=== PATIENT | female | born 1935 | race Caucasian/White ===

== ENCOUNTER → 2017-03-31 | Outpatient (CLI) | payer BC ==
[~2017-03-31] MED LIST: ASPI81TA28 PO; CHOL100027 PO; CYCL10TA6 PO; METF500T PO; METO25TA3 PO; NAPR220T40 PO; SIMV40TA4 PO
[2017-03-31 09:46] LABS: ESTIMATED AVERAGE GLUCOSE 140 mg/dl; HA1C FLAG Normal (Normal)
[2017-03-31 09:58] LABS: ALT/SGPT 30 U/L (12-78); BLOOD UREA NITROGEN 18 mg/dl (7-18); CALCIUM 9.2 mg/dl (8.5-10.1); CARBON DIOXIDE 27 mmol/L (21-32); CHLORIDE 106 mmol/L (98-107); CHOLESTEROL 202 mg/dl (0-200); GLUCOSE 99 mg/dl (70-99); POTASSIUM 4.1 mmol/L (3.5-5.1); SODIUM 139 mmol/L (136-145)
[2017-03-31 10:08] LABS: ALKALINE PHOSPHATASE 100 U/L (45-117); AST/SGOT 21 U/L (15-37); CHOLESTEROL/HDL RATIO 3.1; HDL CHOLESTEROL 66 mg/dl; LDL CHOLESTEROL CALCULATED 106 mg/dl; TRIGLYCERIDES 150 mg/dl (0-150); VERY LOW DENSITY LIPOPROT CALC 30 mg/dl
--- NOTE | 2017-04-05 13:12 | CODING QUERY MEDICAL NECESSITY ---
SUPPORTING DIAGNOSIS NEEDED Dr. Cee, A supporting diagnosis is required for the test/procedure performed on this patient in order for us to be reimbursed by the patient's insurance. Please provide a supporting diagnosis for the following test/procedure listed below next to the test name along with your signature. *If there is no additional diagnosis for this patient that would support the following test/procedure please document that below next to the test/procedure. Test(s)/Procedure(s) that require a supporting diagnosis: * ([id number]) VITAMIN D ASSAY DIAGNOSIS: * [id number] GLYCATED HEMOGLOBIN DIAGNOSIS: DATE OF SERVICE: 03/31/17 Provider Signature: Date: Thank you Alex Coronel Health Information Management Once completed, please kindly fax back to [phone] For questions please call [phone]
== END | disposition home or self-care (01) ==
LOC: C.LAB1850 08:46
PROVIDERS: ATTEND Internal Medicine
DX: E78.5 Hyperlipidemia, unspecified (principal)

== ENCOUNTER → 2017-04-19 | Outpatient (CLI) | payer BC | END | disposition home or self-care (01) | LOC: C.LABSPEC 13:35 | PROVIDERS: ATTEND Physician Assistant | DX: N94.89 Other specified conditions associated with female genital organs and menstrual cycle (principal) ==

== ENCOUNTER → 2017-04-26 | Outpatient (CLI) | payer BC | END | disposition home or self-care (01) | LOC: C.MAMM 12:36 | PROVIDERS: ATTEND Internal Medicine | DX: M81.0 Age-related osteoporosis without current pathological fracture (principal); M85.851 Other specified disorders of bone density and structure, right thigh; M85.852 Other specified disorders of bone density and structure, left thigh ==

== ENCOUNTER → 2017-06-08 | Outpatient (CLI) | payer BC ==
--- NOTE | 2017-06-08 15:16 | MAMMOGRAPHY REPORT ---
BILATERAL DIGITAL SCREENING MAMMOGRAM TOMOSYNTHESIS WITH CAD: 06/08/2017 CLINICAL HISTORY: Routine screening. Patient has no complaints. TECHNIQUE: Breast tomosynthesis in addition to standard 2D mammography was performed. Current study was also evaluated with a Computer Aided Detection (CAD) system. COMPARISON: Comparison is made to exams dated: 06/07/2016 mammogram, 06/03/2015 mammogram, 05/27/2014 mammogram, 05/24/2013 mammogram, 05/23/2012 mammogram, and 05/20/2011 mammogram - [facility]. BREAST COMPOSITION: There are scattered areas of fibroglandular density in both breasts. FINDINGS: No suspicious masses, calcifications, or areas of architectural distortion are noted in ei ther breast. There has been no significant interval change compared to prior exams. IMPRESSION: ACR BI-RADS CATEGORY 1: NEGATIVE There is no mammographic evidence of malignancy. A 1 year screening mammogram is recommended. The pa tient will receive written notification of the results. Approximately 10% of breast cancers are not detected with mammography. A negative mammographic report should not delay biopsy if a clinically suggestive mass is present. Karina Kendall M.D. /:06/08/2017 10:25:18 Computer Numerical Control Operator: Isabel EDWARD(Sloan)(Jeff), [facility] letter sent: Normal 1/2 BI-RADS Code: ACR BI-RADS Category 1: Negative
== END | disposition home or self-care (01) ==
LOC: C.MAMM 09:07
PROVIDERS: ATTEND Internal Medicine
DX: Z12.31 Encounter for screening mammogram for malignant neoplasm of breast (principal)

== ENCOUNTER → 2017-09-29 | Outpatient (CLI) | payer BC ==
[2017-09-29 10:26] LABS: HEMOGLOBIN A1C 6.4 % (4.5-5.6)
[2017-09-29 10:27] LABS: BLOOD UREA NITROGEN 21 mg/dl (7-18); CARBON DIOXIDE 29 mmol/L (21-32); CREATININE 0.89 mg/dl (0.60-1.20); GLUCOSE 105 mg/dl (70-99); POTASSIUM 4.1 mmol/L (3.5-5.1); SODIUM 139 mmol/L (136-145)
== END | disposition home or self-care (01) ==
LOC: C.LAB1850 08:31
PROVIDERS: ATTEND Internal Medicine
DX: E11.9 Type 2 diabetes mellitus without complications (principal); R03.0 Elevated blood-pressure reading, without diagnosis of hypertension; E78.5 Hyperlipidemia, unspecified

== ENCOUNTER 2019-06-23 11:07 | Inpatient (IN) ==
[2019-06-23] MEDS ORDERED: SODIUM CHLORIDE 0.9% 1000ML 500 ML IV ONE ×2 (11:38→12:41)
[2019-06-23] MEDS ORDERED: ONDANSETRON INJ 2 MG/ML 2 ML VIAL IV STA (11:38)
[2019-06-23] MEDS ORDERED: fentaNYL citrate 100 MCG/2 ML VIAL IV STA (11:38)
[2019-06-23] MEDS ORDERED: OPTIRAY 320 125ml IV PRN (12:04)
[2019-06-23 12:11] LABS: iSTAT Creatinine 0.7 mg/dl (0.6-1.3); iSTAT Hemoglobin 13.3 g/dl (12.0-16.0); iSTAT Ionized Calcium 1.17 mmol/l (1.12-1.32); iSTAT Potassium 3.8 mEq/L (3.3-5.0)
[2019-06-23 12:17] LABS: Basophils # (auto) 0.02 K/uL (0-0.2); Basophils % (auto) 0.3 %; Eosinophils # (auto) 0.19 K/uL (0-0.5); Eosinophils % (auto) 2.6 %; Hematocrit (blood only) 39.8 % (37-47); Immature Granulocytes # (auto) 0.01 K/uL (0.00-0.02); Immature Granulocytes % (auto) 0.1 %; Lymphocytes # (auto) 1.92 K/uL (1.2-3.4); Lymphocytes % (auto) 26.2 %; Mean Corpuscular Hemoglobin 29.5 pg (25-34); Mean Corpuscular Hgb Conc 32.7 g/dL (32-36); Mean Corpuscular Volume 90.5 fL (80-100); Mean Platelet Volume 9.5 fL (7.4-10.4); Monocytes # (auto) 0.61 K/uL (0.11-0.59); Monocytes % (auto) 8.3 %; Neutrophils # (auto) 4.58 K/uL (1.4-6.5); Neutrophils % (auto) 62.5 %; Platelet Count 205 K/uL (130-400); RDW Coefficient of Variation 14.7 % (11.5-14.5); RDW Standard Deviation 48.5 fL (36.4-46.3); White Blood Count 7.33 K/uL (4.8-10.8)
[2019-06-23] MEDS ORDERED: HYDROmorphone INJ 0.5 MG/0.5 ML SYR IV STA (12:21)
--- NOTE | 2019-06-23 12:33 | CT Scan Report ---
CT angio chest PE protocol CLINICAL HISTORY: 83 years-old Female presenting with shortness of breath, clinical concern for pulmo nary embolus. TECHNIQUE: Multidetector CT angiography of the chest was performed after administration of intravenou s contrast. 3-D volumetric and/or maximum intensity projection (MIP) images were subsequently reconst ructed for review. IV contrast: 119 mL of Optiray 320. One or more dose lowering techniques were used consistent with the principles of ALARA (as low as reasonably achievable), including automatic expos ure control, mA or kV adjustment to individual patient size, and/or use of iterative reconstruction. COMPARISON: None. CT DOSE (mGy.cm): The estimated cumulative dose is 660.28 mGy.cm. FINDINGS: Associate Business Analyst topogram: Unremarkable. Pulmonary vasculature: The study is adequate for assessment of the pulmonary vascular tree. No filling defect within the pul monary arteries to suggest embolus. Main pulmonary artery is not enlarged. No flattening of the inter ventricular septum. No intracardiac filling defect. No reflux of contrast into the hepatic veins. Remaining chest: Soft tissues: Normal thyroid and thoracic inlet. No axillary, supraclavicular, mediastinal, or hilar lymphadenopathy. Normal aorta. Normal heart size. Trace coronary artery calcification. No pericardial or pleural effusion. Peripancreatic fat infiltration extensively along the entire length of the visu alized pancreas. Lungs and airways: No pneumothorax. Central airways patent. Pulmonary arteries are not significantly enlarged relative to adjacent bronchi. No interlobular septal thickening. Minimal dependent changes l ikely atelectasis. Musculoskeletal: Normal osseous structures. IMPRESSION: 1. No evidence of pulmonary embolus. No acute intrathoracic pathology. 2. Extensive pancreatitis. Please see separately dictated CT of abdomen and pelvis. ACT 112: Negative or not required by law. Electronically signed by: Cornell Michel M.D. 06/23/2019 12:32 PM
[2019-06-23 12:35] LABS: Alanine Aminotransferase 30 U/L (12-78); Albumin Level 3.7 gm/dl (3.4-5.0); Aspartate Aminotransferase 23 U/L (15-37); BUN Creatinine Ratio 19.3 (10-20); Bilirubin Direct 0.1 mg/dl (0-0.2); Blood Urea Nitrogen 16 mg/dl (7-18); Calcium 8.8 mg/dl (8.5-10.1); Carbon Dioxide 28 mmol/L (21-32); Chloride 108 mmol/L (98-107); Est GFR (African American) 77.3; Est GFR (Non-African American) 66.7; Glucose 124 mg/dl (70-99); Magnesium 2.1 mg/dl (1.8-2.4); Potassium 3.7 mmol/L (3.5-5.1); Sodium 138 mmol/L (136-145)
[2019-06-23 12:40] LABS: Alkaline Phosphatase 112 U/L (45-117); Bilirubin,Total 0.8 mg/dl (0.2-1); Lipase 21959 U/L (73-393); Total Protein 7.4 gm/dl (6.4-8.2); Troponin I < 0.015 ng/ml (0-0.045)
--- NOTE | 2019-06-23 12:41 | CT Scan Report ---
CT abd pelvis IV con only CLINICAL HISTORY: 83 years-old Female presenting with LUQ Pain, new xarelto use, shortness of breath, blood in stool. TECHNIQUE: Multidetector CT of the abdomen and pelvis was performed after the administration of intra venous contrast. IV contrast: 119 mL of Optiray 320. One or more dose lowering techniques were used c onsistent with the principles of ALARA (as low as reasonably achievable), including automatic exposur e control, mA or kV adjustment to individual patient size, and/or use of iterative reconstruction. COMPARISON: None. CT DOSE (mGy.cm): The estimated cumulative dose is 660.28. FINDINGS: Media Services Coordinator topogram: Unremarkable. Lung bases: Normal heart size. No pericardial or pleural effusion. Minimal dependent changes likely a telectasis. Liver: Normal morphology. Density suggestive of hepatic steatosis. No focal lesion. Patent hepatic va sculature. Biliary: No intrahepatic or extrahepatic biliary ductal dilatation. Normal gallbladder. Pancreas: Mild parenchymal atrophy. Peripancreatic fat stranding along both the ventral and dorsal as pects primarily limited to the neck, body, and tail. There is also mild fluid along the dorsum of the tail. No focal fluid collection. Enhancement of the parenchyma is preserved allowing for the degree of parenchymal atrophy. Spleen: Normal. Adrenal glands: Normal. Kidneys and ureters: Mild bilateral pelvocaliectasis without distention of the ureters or an obstruct ing calculus. This could either represent prominent parapelvic cysts or ureteropelvic junction obstru ctions. 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 Bladder: Incompletely evaluated secondary to underdistention. Pelvic organs: Uterus surgically absent. Bowel: Diverticulosis of the upper rectum and sigmoid colon as well as the distal descending colon. N o wall thickening or pericolonic inflammatory change. The appendix is normal. No bowel obstruction. S mall sliding type hiatal hernia noted. Peritoneal cavity: No free fluid or intraperitoneal gas. Lymph nodes: No enlarged lymph nodes in the abdomen or pelvis. Vasculature: Atherosclerosis of the normal caliber abdominal aorta. IVC patent. Abdominal wall: Normal. Musculoskeletal: Degenerative changes of the spine. Lumbar fusion hardware and laminectomy defects no dayanara. IMPRESSION: 1. Interstitial edematous pancreatitis, at least moderate in severity. No acute peripancreatic fluid collection. No necrosis at this time. 2. No radiodense gallstones appreciated. Right upper quadrant ultrasound would be better to assess f or cholelithiasis. 3. Diverticulosis coli. No diverticulitis. New small sliding type hiatal hernia. 4. Either mild bilateral pelvocaliectasis suggesting UPJ obstructions versus prominent parapelvic cy sts bilaterally. ACT 112: Negative or not required by law. Electronically signed by: oCrnell Michel M.D. 06/23/2019 12:40 PM
[2019-06-23 14:53] LABS: Appearance Urine Clear (Clear); Bacteria Urine Automated Negative (Negative); Bilirubin Urine Negative (Negative); Blood Urine Trace (Negative); Cast Urine Automated 0 /lpf (0-5); Color Urine Yellow; Epithelial Cell Urine Auto 0-5 /lpf (0-5); Glucose Urine UA Negative (Negative); Ketones Urine Negative (Negative); Leukocyte Esterase Urine Negative (Negative); Nitrite Urine Negative (Negative); Protein Urine Negative (Negative); RBC Urine Automated 0-4 /hpf (0-4); Specific Gravity Urine > 1.045 (1.000-1.030); Urobilinogen Urine Negative (Negative); WBC Urine Automated 0 /hpf (0-5); pH Urine 6.5 (4.5-7.5)
--- NOTE | 2019-06-23 15:13 | History & Physical Report ---
Date of Service June 23, 2019 Assessment & Plan (1) Acute pancreatitis: Admit to PCU on telemetry Vital signs every 4 hours IV fluid hydration with normal saline and 20 meq potassium N.p.o. Replenish electrolytes Pain management Antinausea management CBC every 8 hours, CMP daily, lipase pending Fasting lipid panel pending to exclude hypertriglyceridemia as a cause of acute pancreatitis Consult gastroenterology DVT prophylaxis SCDs and teds, medical DVT prophylaxis is contraindicated because patient has bleeding hemorrhoids. Patient is a full code Present on Admission?: Yes (2) Acute dehydration: IV fluid hydration with normal saline with potassium. Monitor electrolytes Replenish electrolytes BNP pending Present on Admission?: Yes (3) Bleeding hemorrhoids: GI consult pending. For now monitor rectal bleeding due to hemorrhoids.. Started hemorrhoidal suppositories as needed Present on Admission?: Yes (4) Vulvar intraepithelial neoplasia (SARAH): Patient has follow-up outpatient for lichen sclerosis with [facility] at [facility] with Ms Carlos Eduardo FISHER who is following patient case and Dr. uJan Pettit LINING IRONER. Present on Admission?: Yes (5) Vitamin D deficiency: Will check vitamin D level. Present on Admission?: Yes (6) Diabetes mellitus: Hold metformin due to patient being hospitalized and possibly can be a culprit of hypoglycemia or adverse reaction to kidneys when patient would need possibly various radiological studies. Metformin also can cause pancreatitis but less likely since patient has been on it for couple of years. Glycemic control per pharmacy. Recommended Accu-Cheks before meals and at bedtime. Sliding scale insulin. Present on Admission?: Yes (7) Hyperlipidemia: Lipid panel pending. Patient is not on statins. Present on Admission?: Yes (8) Hypertension: Blood pressure is stable. Continue aspirin 81 mg p.o. every morning, metoprolol 25 mg p.o. every morning. Hold Xarelto since patient has bleeding hemorrhoids. Present on Admission?: Yes (9) Superficial thrombophlebitis: Hold Xarelto for now since patient has bleeding hemorrhoids. Present on Admission?: Yes History of Present Illness Chief Complaint: Abdominal pain Primary Care Provider: Cornell Cee MD Patient is a 83 years old female with past medical history of lichen sclerosis SARAH 1 of her vulva, fecal incontinence with bleeding hemorrhoids, diverticulosis of colon, hypertension, hyperlipidemia, lumbar canal stenosis, vitamin D deficiency, who presents to the emergency room with a complaint of abdominal pain for 3 days and not feeling well for 1 week. Patient reports that she was started on Xarelto 1 week ago for superficial thrombophlebitis without DVT. Patient states that for the past week she feels sick in her stomach but condition started to worsen and this morning she decided to come to the emergency room because her pain was unbearable. Patient denies drinking alcohol or ever having similar issues before. Patient denies consuming anything greasy, having a sick contact and or anything that would provoke this issue. Patient appetite is also decreased. Patient did not eat anything since this morning, because she felt that she would not tolerate it. Patient is thinking that this may be caused by Xarelto because start of symptoms was coincidental. Starting the Xarelto. Side effects of Xarelto were reviewed with patient and there was no such as acute pancreatitis found on the list. Patient denies fever, chills, chest pain, shortness of breath, frequency, urgency. On the CT abdomen and pelvis and CT of the chest it was found that patient has extensive pancreatitis. 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 No acute peripancreatic fluid collection. No necrosis at this time. No radiodense gallstones appreciated. Right upper quadrant ultrasound will be better to assess for cholelithiasis. Diverticulosis Thao. No diverticulitis. New small sliding-type hiatal hernia. Labs are reviewed: WBC 7.33, hemoglobin 13, hematocrit 39.8, platelets 205, sodium 138, potassium 3.7, chloride 108, anion gap 2, creatinine 0.81, GFR 66.7, glucose 124, alkaline phosphatase 112, lipase pending. Decision was made to admit patient to PCU on telemetry for acute adenomatosis pancreatitis and further treatment and management. Allergies Allergy/AdvReac Type Severity Reaction Status Date / Time Sulfa (Sulfonamide AdvReac Unknown "MAKES ME Verified 06/23/19 11:58 Antibiotics) SICK" Home Medications Home Medications Medication Instructions Recorded Confirmed Type aspirin 81 mg tablet,delayed 81 mg PO QAM 02/20/19 06/23/19 History release cholecalciferol (vitamin D3) 25 1,000 units PO QAM 04/10/19 06/23/19 History mcg (1,000 unit) tablet metformin 500 mg tablet 500 mg PO QAM tab 04/10/19 06/23/19 History naproxen sodium 220 mg capsule 220 mg PO PRN cap 04/10/19 06/23/19 History propylene glycol 0.6 % eye drops 1 drops OP PRN ml 04/10/19 06/23/19 History clobetasol 0.05 % topical cream 1 appln TOP BID 04/11/19 06/23/19 History imiquimod 5 % topical cream packet 1 applic TOP [id number] ea 04/11/19 06/23/19 History rivaroxaban 15 mg tablet 15 mg PO BID #42 tab 06/13/19 06/23/19 Rx rivaroxaban 20 mg tablet 20 mg PO DAILY #30 tab 06/13/19 06/23/19 Rx metoprolol succinate 25 mg PO QAM 06/23/19 06/23/19 History pyridoxine (vitamin B6) 200 mg PO QAM 06/23/19 06/23/19 History Past Med/Surg History Medical History Cervical arthritis (Chronic) Chronic vulvitis (Chronic) Deep vein phlebitis and thrombophlebitis of lower extremity Diabetes mellitus (Chronic) Elevated BP without diagnosis of hypertension (Chronic) History of esophageal reflux History of migraine headaches History of osteoporosis Hyperlipidemia (Chronic) Lumbar canal stenosis (Chronic) Paroxysmal atrial fibrillation Vitamin D deficiency (Chronic) Vulvar intraepithelial neoplasia (SARAH) (Chronic) Surgical History H/O laminectomy H/O varicose vein ligation and stripping History of oophorectomy, unilateral History of total abdominal hysterectomy Hx of colonoscopy S/P cataract surgery S/P dilation and curettage S/P tonsillectomy S/P tubal ligation Status post repair of nerve Family History Sister Breast cancer Diabetes Grandmother (Maternal) Colorectal cancer Heart disease Mother Emphysema lung COPD (chronic obstructive pulmonary disease) Father Brain tumor Social History Preferred Language: Luxembourgish Communication Ability: Effective Hearing Ability: Normal School Community Relations Coordinator Required: No marital status: Current Living Situation: Spouse current occupational status: retired Feels Safe at Home: Yes Smoking Status: Never smoker Hx Alcohol Use: Yes Alcohol type: wine Alcohol Intake Frequency: Holidays/Special Occasions Hx Substance Use: No Childhood Exposure to Second-Hand Smoke: Yes caffeine: Yes Dental Care, Regularly: Yes Physical Activity Frequency: 3-4 Times per Week Seatbelt Use: always Sunscreen Use: Yes Review of Systems Review of Systems: All systems reviewed & are unremarkable except as noted in HPI & below Physical Exam Constitutional: WD/WN, vitals as above well developed and + ill appearing Eyes: PERRL, conjunctivae normal, anicteric sclerae ENMT: external ear and nose normal, oropharynx normal Neck: trachea midline, no thyromegaly Respiratory: normal respiratory effort, lungs clear to auscultation Cardiovascular: RRR, no murmur, no edema Gastrointestinal (Abdomen): Inspection/Auscultation: normal bowel sounds Percussion/Palpation: + abdomen tender, + guarding and abdomen soft Rectal Exam: + heme positive stool Musculoskeletal: no cyanosis or clubbing, extremities motor strength 5/5 Skin: no rashes, warm and dry Neurologic: patellar DTR's 2+ bilat, sensation intact Psychiatric: A+Ox3, euthymic affect Lymphatic: no cervical or axillary lymphadenopathy Results & Data Vital Signs (Past 12 Hours) Vital Signs Temp Pulse Pulse Resp BP BP Pulse Ox 06/23/19 13:35 75 15 151/76 H 99 06/23/19 12:09 78 20 144/85 H 93 06/23/19 11:16 36.5 C 93 H 22 216/131 H 97 Code Status & VTE Plan Code Status Full code VTE Prophylaxis Plan VTE Prophylaxis will be ordered: Yes PG Care Time/CCT Total # of Minutes Spent Total Time Spent with Patient: Total time spent is greater than 50% in coordination of care (as documented) at patient's floor/unit and/or counseling patient: (1) Acute pancreatitis Acute pancreatitis complication: unspecified Pancreatitis type: unspecified pancreatitis type Qualified Code(s): K85.90 - Acute pancreatitis without necrosis or infection, unspecified
--- NOTE | 2019-06-23 15:38 | Emergency Department Note ---
Entered by Corine Schultz acting as a scribe for Wallace Coffey MD ED Provider Note Name: RALPH HO Age: 83 Arrives Via: Walk-In Informant: Patient CC: Abdominal Pain HPI: [id number] arrives for evaluation of upper abdominal pain that began this morning around 8am. Admits not feeling well yesterday. Pain is epigastric and LUQ as well as left lower chest. The patient states that the pain radiates into the patient's back and is exacerbated by deep breaths. The patient reports experiencing nausea but denies any vomiting. States decreased appetite last 24 hours. The patient also denies any loss of consciousness, hematuria, headaches, falls, or dysuria. No medications taken for pain. Movement makes worse. Staying still makes pain better. No trauma nor injuries. The patient notes that she just started taking Xarelto and has a history of DVT's but no PE's. The patient states that she was on Warfarin before after a back surgery and reports no problems. The patient denies any history of reflux or hemorrhoids but there is family history of factor 5 clotting disorder. ROS: See above HPI for pertinent positives & negatives. A total of 10 systems reviewed and were otherwise negative. Past Medical History:Hemorrhoids, Diverticulitis, HTN, Dyslipidemia, DVT Past Surgical History:See Below Family History:Sisters with Factor V and dVTs Social History:Retired, lives with , no etoh, no smoking Home Medications:See Below Allergies:Sulfa Vitals: BP: 216/131 P: 93 R: 22 T: 36.5 O2 Sat: 97 on RA Physical Exam: GENERAL: Patient is uncomfortable appearing and in moderate distress. EYES: No scleral icterus, unremarkable pupils. ENT: Mucous membranes moist, no nasal congestion. NECK: No masses appreciated, nomeningismus, trachea is midline. RESPIRATORY: No dyspnea. Clear to auscultation and equal bilaterally. No wheeze, no rhonchi. Very uncomfortable with deep inspiration. CARDIOVASCULAR: Regular rate and rhythm.No murmurs, rubs, gallops appreciated. GASTROINTESTINAL: Abdomen soft, exquisite tenderness over LUQ, no peritonitis.Bowel sounds positive.No masses appreciated. BACK: No midline tenderness, no CVA tenderness EXTREMITIES: Phlebitis/swelling right distal medial thigh/knee. Normal motion all extremities, no cyanosis, no edema. RECTAL: Large internal/external hemorrhoids. Small amounts of blood already noted. NEUROLOGIC: Alert and oriented, no acute motor or sensory deficits, no focal weakness, cranial nerves grossly intact. SKIN: No rash, no jaundice, no diaphoresis. ED Course: Prior Medical Record, Triage/Nursing Notes, Medications, Allergies reviewed by Me Vital Signs: reviewed and remarkable for no significant abnormalities Labs:Reviewed and remarkable for no significant abnormalities Interventions: Saline lock, fentanyl 50mcg IV, Dilaudid .5mg IV, NSS bolus 1 L IV Imaging: Radiology results as stated below per my review and the radiologist's in terpretation: CT abd pelvis IV con only CLINICAL HISTORY: 83 years-old Female presenting with LUQ Pain, new xarelto use, shortness of breath, blood in stool. TECHNIQUE: Multidetector CT of the abdomen and pelvis was performed after the administration of intravenous contrast. IV contrast: 119 mL of Optiray 320. One or more dose lowering techniques were used consistent with the principles of ALARA (as low as reasonably achievable), including automatic exposure control, mA or kV adjustment to individual patient size, and/or use of iterative reconstruction. COMPARISON: None. CT DOSE (mGy.cm): The estimated cumulative dose is 660.28. FINDINGS: Network Project Manager topogram: Unremarkable. Lung bases: Normal heart size. No pericardial or pleural effusion. Minimal dependent changes likely atelectasis. Liver: Normal morphology. Density suggestive of hepatic steatosis. No focal lesion. Patent hepatic vasculature. Biliary: No intrahepatic or extrahepatic biliary ductal dilatation. Normal gallbladder. Pancreas: Mild parenchymal atrophy. Peripancreatic fat stranding along both the ventral and dorsal aspects primarily limited to the neck, body, and tail. There is also mild fluid along the dorsum of the tail. No focal fluid collection. Enhancement of the parenchyma is preserved allowing for the degree of parenchymal atrophy. Spleen: Normal. Adrenal glands: Normal. Kidneys and ureters: Mild bilateral pelvocaliectasis without distention of the ureters or an obstructing calculus. This could either represent prominent parapelvic cysts or ureteropelvic junction obstructions. 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 Bladder: Incompletely evaluated secondary to underdistention. Pelvic organs: Uterus surgically absent. Bowel: Diverticulosis of the upper rectum and sigmoid colon as well as the distal descending colon. No wall thickening or pericolonic inflammatory change. The appendix is normal. No bowel obstruction. Small sliding type hiatal hernia noted. Peritoneal cavity: No free fluid or intraperitoneal gas. Lymph nodes: No enlarged lymph nodes in the abdomen or pelvis. Vasculature: Atherosclerosis of the normal caliber abdominal aorta. IVC patent. Abdominal wall: Normal. Musculoskeletal: Degenerative changes of the spine. Lumbar fusion hardware and laminectomy defects noted. IMPRESSION: 1. Interstitial edematous pancreatitis, at least moderate in severity. No acute peripancreatic fluid collection. No necrosis at this time. 2. No radiodense gallstones appreciated. Right upper quadrant ultrasound would be better to assess for cholelithiasis. 3. Diverticulosis coli. No diverticulitis. New small sliding type hiatal hernia. 4. Either mild bilateral pelvocaliectasis suggesting UPJ obstructions versus prominent parapelvic cysts bilaterally. ACT 112: Negative or not required by law. Electronically signed by: Cornell Michel M.D. 06/23/2019 12:[address] angio chest PE protocol CLINICAL HISTORY: 83 years-old Female presenting with shortness of breath, clinical concern for pulmonary embolus. TECHNIQUE: Multidetector CT angiography of the chest was performed after administration of intravenous contrast. 3-D volumetric and/or maximum intensity projection (MIP) images were subsequently reconstructed for review. IV contrast: 119 mL of Optiray 320. One or more dose lowering techniques were used consistent with the principles of ALARA (as low as reasonably achievable), including automatic exposure control, mA or kV adjustment to individual patient size, and/or use of iterative reconstruction. COMPARISON: None. CT DOSE (mGy.cm): The estimated cumulative dose is 660.28 mGy.cm. FINDINGS: Network Project Manager topogram: Unremarkable. Pulmonary vasculature: The study is adequate for assessment of the pulmonary vascular tree. No filling defect within the pulmonary arteries to suggest embolus. Main pulmonary artery is not enlarged. No flattening of the interventricular septum. No intracardiac filling defect. No reflux of contrast into the hepatic veins. Remaining chest: Soft tissues: Normal thyroid and thoracic inlet. No axillary, supraclavicular, mediastinal, or hilar lymphadenopathy. Normal aorta. Normal heart size. Trace coronary artery calcification. No pericardial or pleural effusion. Peripancreatic fat infiltration extensively along the entire length of the visualized pancreas. Lungs and airways: No pneumothorax. Central airways patent. Pulmonary arteries are not significantly enlarged relative to adjacent bronchi. No interlobular septal thickening. Minimal dependent changes likely atelectasis. Musculoskeletal: Normal osseous structures. IMPRESSION: 1. No evidence of pulmonary embolus. No acute intrathoracic pathology. 2. Extensive pancreatitis. Please see separately dictated CT of abdomen and pelvis. ACT 112: Negative or not required by law. Electronically signed by: Cornell Michel M.D. 06/23/2019 12:32 PM EKG:Per My Interpretation: Indication Epigastric Pain: NSR 82 bpm, qtc 441. No Ectopy. No Ischemia. Compared to EKG 07/24/12, no significant changes. Consults:1258: I spoke with Dr. Bennett- Hospitalist about the patient's case and she will accept the patient for further evaluation. Reassessments/Times: 1132: Past medical records reviewed. The patient was evaluated in room A11B. A complete history and physical exam was performed. 1222: Pain was initially improved but getting worse. The patient just got back from CT scan. 1242: Dr. Bennett was paged. 1250: The patient received Dilaudid and is feeling better. I discussed the diagnosis of Pancreatitis with her. Blood pressure:Elevated - Referred to PCP Disposition:Hospitalization Differentials: Differential diagnosis: Etiologies such as biliary colic, cholecystitis, hepatitis, perihepatitis, pancreatitis, cardiac disease, pancreatitis, gastritis, peptic ulcer disease, appendicitis, ovarian cyst, ovarian torsion, ectopic , pelvic inflammatory disease, cystitis, diverticulitis, mesenteric ischemia, inflammatory bowel disease, ileus, bowel obstruction, aortic pathology, shingles, as well as others were considered. Medical Decision Makin yr old female with LUQ/Epigastric pain worse with deep inspiration who just was started on Xarelto for right leg dvt. EKG without evidence ACS. Moved to CT which included chest as left chest pain with deep inspiration which was was negative. CT abdo/pelvis shows pancreatitis without bleeding nor cyst noted. Labs consistent with pancreatitis. No infections appreciated. Pain controlled here. Patient/ comfortable with plan. Hospitalist consulted for further management. Impression: Pancreatitis Dehydration Bleeding Hemorrhoids The scribe's documentation has been prepared under my direction and personally reviewed by me in its entirety. I confirm that the note above accurately reflects all work, treatment, procedures, and medical decision making performed by me. 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 Diabetes mellitus (Chronic) Elevated BP without diagnosis of hypertension (Chronic) History of esophageal reflux History of migraine headaches History of osteoporosis Hyperlipidemia (Chronic) Lumbar canal stenosis (Chronic) Paroxysmal atrial fibrillation Vitamin D deficiency (Chronic) Vulvar intraepithelial neoplasia (SARAH) (Chronic) Surgical History H/O laminectomy H/O varicose vein ligation and stripping History of oophorectomy, unilateral History of total abdominal hysterectomy Hx of colonoscopy S/P cataract surgery S/P dilation and curettage S/P tonsillectomy S/P tubal ligation Status post repair of nerve Family History Sister Breast cancer Diabetes Grandmother (Maternal) Colorectal cancer Heart disease Mother Emphysema lung COPD (chronic obstructive pulmonary disease) Father Brain tumor Social History Preferred Language: Belarusian Communication Ability: Effective Hearing Ability: Normal S Iron Worker Required: No marital status: Current Living Situation: Spouse current occupational status: retired Feels Safe at Home: Yes Smoking Status: Never smoker Hx Alcohol Use: Yes Alcohol type: wine Alcohol Intake Frequency: Holidays/Special Occasions Hx Substance Use: No Childhood Exposure to Second-Hand Smoke: Yes caffeine: Yes Dental Care, Regularly: Yes Physical Activity Frequency: 3-4 Times per Week Seatbelt Use: always Sunscreen Use: Yes Results & Data Vital Signs Vital Signs - 24 hr 06/23/19 11:16 06/23/19 12:09 06/23/19 13:35 Temperature 36.5 C Temperature Source Oral Pulse Rate 93 H Pulse Rate [Left] 78 75 Pulse Rhythm Regular Pulse Rhythm [Left] Regular Pulse Strength Normal Respiratory Rate 22 20 15 Respiratory Effort / Characteristics Non-Labored Spontaneous Non-Labored Non-Labored Respiratory Depth Normal Normal Normal Respiratory Pattern Regular Regular Regular Blood Pressure 216/131 H Blood Pressure [Left Arm] 144/85 H 151/76 H Blood Pressure Mean 159 Blood Pressure Mean [Left Arm] 104 101 Blood Pressure Position Sitting Pulse Oximetry 97 93 99 Oxygen Delivery Method Room Air Room Air Room Air Sepsis Recent Fever Within 48 Hours No Sepsis New/Unexplained Change in Mental Status No Sepsis Action Taken by Nursing No Action Required Home Medications Current Medication List: was personally reviewed by me Laboratory Data Attestation: I reviewed the patient's lab results. Result diagrams: 06/23/19 11:49 06/23/19 11:49 Lab Results 06/23/19 06/23/19 06/23/19 Range/Units 11:49 11:49 11:49 WBC 7.33 (4.8-10.8) K/uL RBC 4.40 (4.2-5.4) M/uL Hgb 13.0 (12.0-16.0) g/dL POC Hgb (12.0-16.0) g/dl Hct 39.8 (37-47) % POC Hct (37-47) % MCV 90.5 (80-100) fL MCH 29.5 (25-34) pg MCHC 32.7 (32-36) g/dL RDW Std Deviation 48.5 H (36.4-46.3) fL RDW Coeff of Lorenzo 14.7 H (11.5-14.5) % Plt Count 205 (130-400) K/uL MPV 9.5 (7.4-10.4) fL Immature Gran % (Auto) 0.1 % Neut % (Auto) 62.5 % Lymph % (Auto) 26.2 % [place] % (Auto) 8.3 % Eos % (Auto) 2.6 % Baso % (Auto) 0.3 % Immature Gran # (Auto) 0.01 (0.00-0.02) K/uL Neut # (Auto) 4.58 (1.4-6.5) K/uL Lymph # (Auto) 1.92 (1.2-3.4) K/uL [place] # (Auto) 0.61 H (0.11-0.59) K/uL Eos # (Auto) 0.19 (0-0.5) K/uL Baso # (Auto) 0.02 (0-0.2) K/uL POC Sodium (135-144) mEq/L Sodium 138 (136-145) mmol/L POC Potassium (3.3-5.0) mEq/L Potassium 3.7 (3.5-5.1) mmol/L POC Chloride (101-112) mEq/L Chloride 108 H (98-107) mmol/L Carbon Dioxide 28 (21-32) mmol/L POC Total CO2 (24-31) mEq/l Anion Gap 2.0 L (3-11) POC Anion Gap (16-25) mmol/L POC BUN (7-18) mg/dl BUN 16 (7-18) mg/dl Creatinine 0.81 (0.6-1.2) mg/dl POC Creatinine (0.6-1.3) mg/dl Est Cr Clr Drug Dosing 51.0 ml/min Est GFR ( Amer) 77.3 Est GFR (Non-Af Amer) 66.7 BUN/Creatinine Ratio 19.3 (10-20) Glucose 124 H (70-99) mg/dl POC Glucose (other) (70-99) mg/dl Calcium 8.8 (8.5-10.1) mg/dl POC Ioniz Calcium Reji (1.12-1.32) mmol/l Magnesium 2.1 Cancelled (1.8-2.4) mg/dl Total Bilirubin 0.8 (0.2-1) mg/dl Direct Bilirubin 0.1 (0-0.2) mg/dl AST 23 (15-37) U/L ALT 30 (12-78) U/L Alkaline Phosphatase 112 (45-117) U/L Troponin I < 0.015 Cancelled (0-0.045) ng/ml Total Protein 7.4 (6.4-8.2) gm/dl Albumin 3.7 (3.4-5.0) gm/dl Lipase 44018 H Cancelled (73-393) U/L Urine Color Urine Appearance (Clear) Urine pH (4.5-7.5) Ur Specific [place] (1.000-1.030) Urine Protein (Negative) Urine Glucose (UA) (Negative) Urine Ketones (Negative) Urine Blood (Negative) Urine Nitrite (Negative) Urine Bilirubin (Negative) Urine Urobilinogen (Negative) Ur Leukocyte Esterase (Negative) Urine WBC (Auto) (0-5) /hpf Urine RBC (Auto) (0-4) /hpf U Hyaline Cast (Auto) (0-5) /lpf U Epithel Cells (Auto) (0-5) /lpf Urine Bacteria (Auto) (Negative) 06/23/19 06/23/19 Range/Units 11:58 14:23 WBC (4.8-10.8) K/uL RBC (4.2-5.4) M/uL Hgb (12.0-16.0) g/dL POC Hgb 13.3 (12.0-16.0) g/dl Hct (37-47) % POC Hct 39 (37-47) % MCV (80-100) fL MCH (25-34) pg MCHC (32-36) g/dL RDW Std Deviation (36.4-46.3) fL RDW Coeff of Lorenzo (11.5-14.5) % Plt Count (130-400) K/uL MPV (7.4-10.4) fL Immature Gran % (Auto) % Neut % (Auto) % Lymph % (Auto) % [place] % (Auto) % Eos % (Auto) % Baso % (Auto) % Immature Gran # (Auto) (0.00-0.02) K/uL Neut # (Auto) (1.4-6.5) K/uL Lymph # (Auto) (1.2-3.4) K/uL [place] # (Auto) (0.11-0.59) K/uL Eos # (Auto) (0-0.5) K/uL Baso # (Auto) (0-0.2) K/uL POC Sodium 141 (135-144) mEq/L Sodium (136-145) mmol/L POC Potassium 3.8 (3.3-5.0) mEq/L Potassium (3.5-5.1) mmol/L POC Chloride 106 (101-112) mEq/L Chloride (98-107) mmol/L Carbon Dioxide (21-32) mmol/L POC Total CO2 26 (24-31) mEq/l Anion Gap (3-11) POC Anion Gap 13.0 L (16-25) mmol/L POC BUN 15 (7-18) mg/dl BUN (7-18) mg/dl Creatinine (0.6-1.2) mg/dl POC Creatinine 0.7 (0.6-1.3) mg/dl Est Cr Clr Drug Dosing ml/min Est GFR ( Amer) Est GFR (Non-Af Amer) BUN/Creatinine Ratio (10-20) Glucose (70-99) mg/dl POC Glucose (other) 127 H (70-99) mg/dl Calcium (8.5-10.1) mg/dl POC Ioniz Calcium Reji 1.17 (1.12-1.32) mmol/l Magnesium (1.8-2.4) mg/dl Total Bilirubin (0.2-1) mg/dl Direct Bilirubin (0-0.2) mg/dl AST (15-37) U/L ALT (12-78) U/L Alkaline Phosphatase (45-117) U/L Troponin I (0-0.045) ng/ml Total Protein (6.4-8.2) gm/dl Albumin (3.4-5.0) gm/dl Lipase (73-393) U/L Urine Color Yellow Urine Appearance Clear (Clear) Urine pH 6.5 (4.5-7.5) Ur Specific [place] > 1.045 H (1.000-1.030) Urine Protein Negative (Negative) Urine Glucose (UA) Negative (Negative) Urine Ketones Negative (Negative) Urine Blood Trace H (Negative) Urine Nitrite Negative (Negative) Urine Bilirubin Negative (Negative) Urine Urobilinogen Negative (Negative) Ur Leukocyte Esterase Negative (Negative) Urine WBC (Auto) 0 (0-5) /hpf Urine RBC (Auto) 0-4 (0-4) /hpf U Hyaline Cast (Auto) 0 (0-5) /lpf U Epithel Cells (Auto) 0-5 (0-5) /lpf Urine Bacteria (Auto) Negative (Negative) Administered Medications Ioversol (Optiray 320 125ml) 119 ml IV ONCE PRN PRN Reason: Interaction Checking Stop: 06/27/19 12:03 Last Admin: 06/23/19 12:04 Dose: 119 ml Documented by: [id number] Discontinued Medications Fentanyl Citrate (Fentanyl Citrate) 50 mcg IV NOW STA Stop: 06/23/19 11:39 Last Admin: 06/23/19 12:05 Dose: 50 mcg Documented by: [id number] Hydromorphone HCl (Dilaudid) 0.5 mg IV NOW STA Stop: 06/23/19 12:22 Last Admin: 06/23/19 12:44 Dose: 0.5 mg Documented by: [id number] Sodium Chloride (Nss 1000ml) 500 mls @ 999 mls/hr IV .Q31M ONE Stop: 06/23/19 12:08 Last Infusion: 06/23/19 13:32 Dose: 0 mls/hr Documented by: [id number] Admin: 06/23/19 12:44 Dose: 999 mls/hr Documented by: [id number] Sodium Chloride (Nss 1000ml) 500 mls @ 999 mls/hr IV .Q31M ONE Stop: 06/23/19 13:11 Last Infusion: 06/23/19 13:32 Dose: 0 mls/hr Documented by: [id number] Admin: 06/23/19 12:44 Dose: 999 mls/hr Documented by: [id number] Ondansetron HCl (Zofran) 4 mg IV NOW STA Stop: 06/23/19 11:39 Last Admin: 06/23/19 12:05 Dose: 4 mg Documented by: [id number] Blood Pressure Blood Pressure Findings: Elevated blood pressure Blood Pressure Disposition: further management by hospitalist Discharge Plan Visit Data Chief Complaint: Abdominal Pain Stated Complaint: SEVERE STOMACH PAIN ED Provider: Wallace Coffey Discharge Problem: Acute pancreatitis, Acute dehydration, Bleeding hemorrhoids Discharge Problem: Acute pancreatitis Qualifiers: Pancreatitis type: unspecified pancreatitis type Acute pancreatitis complication: unspecified Qualified Code(s): K85.90 - Acute pancreatitis without necrosis or infection, unspecified The scribe's documentation has been prepared under my direction and personally reviewed by me in its entirety. I confirm that the note above accurately reflects all work, treatment, procedures, and medical decision making performed by me.
[2019-06-23] MEDS ORDERED: GLUCOSE 10 TABS/TUBE PO PRN (16:09)
[2019-06-23] MEDS ORDERED: ONDANSETRON INJ 2 MG/ML 2 ML VIAL IV PRN (16:09)
[2019-06-23] MEDS ORDERED: PROPYLENE GLYCOL OP SCH (16:09)
[2019-06-23] MEDS ORDERED: GLUCOSE 40% GEL 15 GM TUBE PO PRN (16:09)
[2019-06-23] MEDS ORDERED: ALUMINUM/MAGNESIUM SUSP 30 ML UDC PO PRN (16:09)
[2019-06-23] MEDS ORDERED: CARBOHYDRATES FOR HYPOGLYCEMIA PO PRN (16:09)
[2019-06-23] MEDS ORDERED: DEXTROSE 50% 50 ML SYRINGE IV PRN (16:09)
[2019-06-23] MEDS ORDERED: MAGNESIUM HYDROXIDE SUSP 30 ML UDC PO PRN (16:09)
[2019-06-23] MEDS ORDERED: HYDROmorphone INJ 0.5 MG/0.5 ML SYR IV PRN (16:09)
[2019-06-23] MEDS ORDERED: GLUCAGON FOR INJ 1 MG VIAL SQ PRN (16:09)
--- NOTE | 2019-06-23 16:17 | Ultrasound Report ---
US abdomen limited CLINICAL HISTORY: 83 years-old Female presenting with possible gallstone, edematous pancreatitis. TECHNIQUE: Real-time grayscale and limited color Doppler ultrasound imaging of the abdomen limited to the right upper quadrant was performed. COMPARISON: CT of the abdomen and pelvis from earlier today. FINDINGS: Pancreas: Visualized portions of the pancreatic head and body normal. Liver: Mildly hyperechogenic parenchyma, although the right hemidiaphragm remains visible, likely ind icating mild steatosis. The liver measures 13.9 cm in maximal sagittal dimension. No sonographic evid ence of hepatic mass. Main portal vein patent with normal directional flow. Biliary: No intrahepatic biliary ductal dilatation. Common bile duct measures up to 3 mm in diameter. Gallbladder: No evidence of gallstones, gallbladder wall thickening, gallbladder distention, or peric holecystic fluid or inflammatory change. Unable to assess sonographic Foster's sign. Right kidney: Cystic dilation in the renal sinus is favored to represent parapelvic cysts. Ascites: None. Other: None. IMPRESSION: 1. No cholelithiasis or biliary ductal dilatation. 2. Suspected hepatic steatosis. 3. Right renal parapelvic cysts favored over hydronephrosis given the morphology. ACT 112: Negative or not required by law. Electronically signed by: Cornell Michel M.D. 06/23/2019 4:15 PM
[2019-06-23] MEDS ORDERED: PHARMACY GLYCEMIC MGMT CONSULT PRN (16:35)
[2019-06-23 16:44] LABS: Basophils # (auto) 0.02 K/uL (0-0.2); Basophils % (auto) 0.2 %; Eosinophils # (auto) 0.04 K/uL (0-0.5); Eosinophils % (auto) 0.4 %; Hematocrit (blood only) 37.3 % (37-47); Hemoglobin 12.3 g/dL (12.0-16.0); Immature Granulocytes # (auto) 0.02 K/uL (0.00-0.02); Immature Granulocytes % (auto) 0.2 %; Lymphocytes # (auto) 1.28 K/uL (1.2-3.4); Lymphocytes % (auto) 13.3 %; Mean Corpuscular Hemoglobin 30.1 pg (25-34); Mean Corpuscular Volume 91.2 fL (80-100); Mean Platelet Volume 8.9 fL (7.4-10.4); Monocytes # (auto) 0.46 K/uL (0.11-0.59); Monocytes % (auto) 4.8 %; Neutrophils # (auto) 7.83 K/uL (1.4-6.5); Neutrophils % (auto) 81.1 %; Platelet Count 173 K/uL (130-400); RDW Coefficient of Variation 14.7 % (11.5-14.5); RDW Standard Deviation 49.6 fL (36.4-46.3); Red Blood Count 4.09 M/uL (4.2-5.4); White Blood Count 9.65 K/uL (4.8-10.8)
[2019-06-23] MEDS ORDERED: NSS + 20MEQ KCL 20 MEQ/1,000 ML BAG IV SCH (17:00)
[2019-06-23 17:14] LABS: Thyroid Stimulating Hormone 1.48 uIu/ml (0.300-4.500)
[2019-06-23] MEDS: INSULIN ASPART 100 UNITS/ML 3 ML PEN SC SCH (19:15)
[2019-06-23] MEDS: CLOBETASOL PROPIONATE 0.05% OINT 15 GM TUBE EXT SCH (20:04)
[2019-06-23] MEDS: ACETAMINOPHEN 325 MG TAB PO PRN (22:16)
[2019-06-24 00:28] LABS: Basophils # (auto) 0.01 K/uL (0-0.2); Basophils % (auto) 0.1 %; Eosinophils # (auto) 0.06 K/uL (0-0.5); Eosinophils % (auto) 0.7 %; Hematocrit (blood only) 35.5 % (37-47); Hemoglobin 11.4 g/dL (12.0-16.0); Immature Granulocytes # (auto) 0.01 K/uL (0.00-0.02); Immature Granulocytes % (auto) 0.1 %; Lymphocytes # (auto) 1.51 K/uL (1.2-3.4); Lymphocytes % (auto) 18.6 %; Mean Corpuscular Hemoglobin 29.3 pg (25-34); Mean Corpuscular Hgb Conc 32.1 g/dL (32-36); Mean Corpuscular Volume 91.3 fL (80-100); Mean Platelet Volume 8.9 fL (7.4-10.4); Monocytes # (auto) 0.67 K/uL (0.11-0.59); Monocytes % (auto) 8.2 %; Neutrophils # (auto) 5.88 K/uL (1.4-6.5); Neutrophils % (auto) 72.3 %; Platelet Count 181 K/uL (130-400); RDW Coefficient of Variation 14.8 % (11.5-14.5); RDW Standard Deviation 49.6 fL (36.4-46.3); Red Blood Count 3.89 M/uL (4.2-5.4); White Blood Count 8.14 K/uL (4.8-10.8)
[2019-06-24] MEDS: ACETAMINOPHEN 325 MG TAB PO PRN ×2 (05:36→09:53)
[2019-06-24 05:39] LABS: Basophils # (auto) 0.02 K/uL (0-0.2); Basophils % (auto) 0.3 %; Eosinophils # (auto) 0.15 K/uL (0-0.5); Hematocrit (blood only) 34.8 % (37-47); Hemoglobin 11.1 g/dL (12.0-16.0); Lymphocytes # (auto) 1.77 K/uL (1.2-3.4); Lymphocytes % (auto) 23.1 %; Mean Corpuscular Hemoglobin 29.1 pg (25-34); Mean Corpuscular Hgb Conc 31.9 g/dL (32-36); Mean Corpuscular Volume 91.1 fL (80-100); Mean Platelet Volume 9.2 fL (7.4-10.4); Monocytes # (auto) 0.76 K/uL (0.11-0.59); Monocytes % (auto) 9.9 %; Neutrophils # (auto) 4.95 K/uL (1.4-6.5); Neutrophils % (auto) 64.7 %; Platelet Count 164 K/uL (130-400); RDW Coefficient of Variation 14.9 % (11.5-14.5); RDW Standard Deviation 49.7 fL (36.4-46.3); Red Blood Count 3.82 M/uL (4.2-5.4); White Blood Count 7.65 K/uL (4.8-10.8)
[2019-06-24] MEDS: INSULIN ASPART 100 UNITS/ML 3 ML PEN SC SCH ×5 (05:40→20:57)
[2019-06-24 06:07] LABS: Albumin Level 2.8 gm/dl (3.4-5.0); BUN Creatinine Ratio 15.3 (10-20); Calcium 8.1 mg/dl (8.5-10.1); Creatinine Clr Calc Pharmacy 59.5 ml/min; Est GFR (African American) 92.6; Est GFR (Non-African American) 79.9; Potassium 3.6 mmol/L (3.5-5.1)
[2019-06-24 06:15] LABS: Albumin Globulin Ratio 0.9 (0.9-2); Bilirubin,Total 1.1 mg/dl (0.2-1); Total Protein 5.8 gm/dl (6.4-8.2)
[2019-06-24] MEDS ORDERED: PYRIDOXINE PO SCH (09:00)
[2019-06-24] MEDS ORDERED: RIVAROXABAN 20 MG TAB PO SCH (09:00)
[2019-06-24] MEDS: METOPROLOL SUCC 25MG EXT REL TAB PO SCH (09:54)
[2019-06-24] MEDS: ASPIRIN 81 MG ECTAB PO SCH (09:54)
[2019-06-24] MEDS: CHOLECALCIFEROL 1,000 UNITS TAB PO SCH (09:54)
[2019-06-24] MEDS: CLOBETASOL PROPIONATE 0.05% OINT 15 GM TUBE EXT SCH ×2 (09:57→20:10)
--- NOTE | 2019-06-24 10:02 | Gastrointestinal Consultation ---
Date of Consultation June 24, 2019 Assessment & Plan (1) Acute pancreatitis: Acute onset of uncomplicated pancreatitis. No evidence of gallstones noted, etiologies may be medication induced, idiopathic, check triglycerides as a possible etiology. Certainly although Percy is not noted to have pancreatitis commonly, this certainly could be the culprit. Unsure of the indication for superficial thrombophlebitis but would hold the medication. Her hematocrit has declined appropriately with IV fluids, and there is no evidence of any endorgan dysfunction and complication. I would continue with IV fluids with lactated Ringer's, given her age at 150 to 200 cc/h. Continue symptomatic care, LFTs are normal no evidence of necessity of intervention required at this time. I would continue with continued conservative management, okay to start liquids given the absence of any symptoms today. Dr. Palacios will return tomorrow to assume care Please call with any questions. History of Present Illness Reason for Consultation: Pancreatitis-covering for Dr. Tee Palacios Attending Physician: Khoa Monaco History of Present Illness This is an 83 years old female with past medical history of lichen sclerosis SARAH 1 of her vulva, fecal incontinence with bleeding hemorrhoids, diverticulosis of colon, hypertension, hyperlipidemia, lumbar canal stenosis, vitamin D deficiency, who presents to the emergency room with a complaint of abdominal pain for 3 days and not feeling well for 1 week. We have been asked to see her while covering Dr. Palacios whom she normally follows with. She states she was started on Xarelto 1 week ago for superficial thrombophlebitis without DVT. She then stated that she felt sick in her stomach with epigastric abdominal pain prompting her to come to the emergency room. Pain was acute onset, she is not had anything like this in the past, she did have accompanying nausea without vomiting. This presentation she feels almost entirely asymptomatic. She did have an half a glass of wine the evening prior to pain onset. Patient denies drinking alcohol or ever having similar issues before. Patient is thinking that this may be caused by Xarelto because start of symptoms was coincidental. Patient denies fever, chills, chest pain, shortness of breath, frequency, urgency. In the emergency room a CT abdomen and pelvis and CT of the chest it was found that patient evidence of uncomplicated pancreatitis with edema in the peripancreatic area characteristic of pancreatitis. No necrosis at this time. Gallbladder is in situ with no radiodense gallstones appreciated. Right upper quadrant ultrasound also shows no gallstones. WBC 7.33, hemoglobin 13, hematocrit 39.8, platelets 205, sodium 138, potassium 3.7, chloride 108, anion gap 2, creatinine 0.81, LFTs are normal 10 system review is negative except for stated as in the HPI Allergies Allergy/AdvReac Type Severity Reaction Status Date / Time Sulfa (Sulfonamide AdvReac Unknown "MAKES ME Verified 06/23/19 11:58 Antibiotics) SICK" Home Medications Home Medications Medication Instructions Recorded Confirmed Type aspirin 81 mg tablet,delayed 81 mg PO QAM 02/20/19 06/23/19 History release cholecalciferol (vitamin D3) 25 1,000 units PO QAM 04/10/19 06/23/19 History mcg (1,000 unit) tablet metformin 500 mg tablet 500 mg PO QAM tab 04/10/19 06/23/19 History naproxen sodium 220 mg capsule 220 mg PO PRN cap 04/10/19 06/23/19 History propylene glycol 0.6 % eye drops 1 drops OP PRN ml 04/10/19 06/23/19 History clobetasol 0.05 % topical cream 1 appln TOP BID 04/11/19 06/23/19 History imiquimod 5 % topical cream packet 1 applic TOP [id number] ea 04/11/19 06/23/19 History rivaroxaban 15 mg tablet 15 mg PO BID #42 tab 06/13/19 06/23/19 Rx rivaroxaban 20 mg tablet 20 mg PO DAILY #30 tab 06/13/19 06/23/19 Rx metoprolol succinate 25 mg PO QAM 06/23/19 06/23/19 History pyridoxine (vitamin B6) 200 mg PO QAM 06/23/19 06/23/19 History Patient History Medical History Cervical arthritis (Chronic) Chronic vulvitis (Chronic) Deep vein phlebitis and thrombophlebitis of lower extremity Diabetes mellitus (Chronic) Elevated BP without diagnosis of hypertension (Chronic) History of esophageal reflux History of migraine headaches History of osteoporosis Hyperlipidemia (Chronic) Lumbar canal stenosis (Chronic) Paroxysmal atrial fibrillation Vitamin D deficiency (Chronic) Vulvar intraepithelial neoplasia (SARAH) (Chronic) Surgical History H/O laminectomy H/O varicose vein ligation and stripping History of oophorectomy, unilateral History of total abdominal hysterectomy Hx of colonoscopy S/P cataract surgery S/P dilation and curettage S/P tonsillectomy S/P tubal ligation Status post repair of nerve Family History Sister Breast cancer Diabetes Grandmother (Maternal) Colorectal cancer Heart disease Mother Emphysema lung COPD (chronic obstructive pulmonary disease) Father Brain tumor Social History Preferred Language: Korean Communication Ability: Effective Hearing Ability: Normal Foreign Policy Officer Required: No Beliefs That Will Affect Care: None marital status: Current Living Situation: Spouse current occupational status: retired Feels Safe at Home: Yes Smoking Status: Never smoker Hx Alcohol Use: Yes Alcohol type: wine Alcohol Intake Frequency: Holidays/Special Occasions Hx Substance Use: No Childhood Exposure to Second-Hand Smoke: Yes caffeine: Yes Dental Care, Regularly: Yes Physical Activity Frequency: 3-4 Times per Week Seatbelt Use: always Sunscreen Use: Yes Review of Systems Review of Systems: All systems reviewed & are unremarkable except as noted in HPI & below Physical Exam Physical Exam: Awake alert oriented x3, moving her extremities no apparent distress Neurologically intact No rashes No skin signs of thrombophlebitis Constitutional: WD/WN, vitals as above Cardiovascular: RRR, no murmur, no edema Gastrointestinal (Abdomen): normal bowel sounds, soft, nontender, no hepatosplenomegaly Results & Data Vital Signs (Past 12 Hours) Vital Signs Temp Pulse Resp BP Pulse Ox 06/24/19 08:08 36.5 C 82 18 109/56 L 94 06/24/19 04:02 36.9 C 78 17 111/63 96 06/24/19 00:10 37.1 C 83 18 118/55 L 93 RUQ US US abdomen limited CLINICAL HISTORY: 83 years-old Female presenting with possible gallstone, edematous pancreatitis. TECHNIQUE: Real-time grayscale and limited color Doppler ultrasound imaging of the abdomen limited to the right upper quadrant was performed. COMPARISON: CT of the abdomen and pelvis from earlier today. FINDINGS: Pancreas: Visualized portions of the pancreatic head and body normal. Liver: Mildly hyperechogenic parenchyma, although the right hemidiaphragm remains visible, likely indicating mild steatosis. The liver measures 13.9 cm in maximal sagittal dimension. No sonographic evidence of hepatic mass. Main portal vein patent with normal directional flow. Biliary: No intrahepatic biliary ductal dilatation. Common bile duct measures up to 3 mm in diameter. Gallbladder: No evidence of gallstones, gallbladder wall thickening, gallbladder distention, or pericholecystic fluid or inflammatory change. Unable to assess sonographic Foster's sign. Right kidney: Cystic dilation in the renal sinus is favored to represent parapelvic cysts. Ascites: None. Other: None. IMPRESSION: 1. No cholelithiasis or biliary ductal dilatation. 2. Suspected hepatic steatosis. 3. Right renal parapelvic cysts favored over hydronephrosis given the morphology. (1) Acute pancreatitis Acute pancreatitis complication: unspecified Pancreatitis type: unspecified pancreatitis type Qualified Code(s): K85.90 - Acute pancreatitis without necrosis or infection, unspecified
--- NOTE | 2019-06-24 11:29 | Hospitalist Progress Note ---
Date of Service June 24, 2019 Assessment & Plan (1) Acute pancreatitis: Admit to PCU on telemetry Vital signs every 4 hours will continue IVF will start patient on a diet. Pain has improved on second day of admission. Replenish electrolytes Pain management Antinausea management CBC every 8 hours, CMP daily, lipase pending Fasting lipid panel pending to exclude hypertriglyceridemia as a cause of acute pancreatitis Consult gastroenterology DVT prophylaxis SCDs and teds, medical DVT prophylaxis is contraindicated because patient has bleeding hemorrhoids. Patient is a full code (2) Acute dehydration: IV fluid hydration with normal saline with potassium. Monitor electrolytes Replenish electrolytes improved. (3) Bleeding hemorrhoids: GI consult pending. For now monitor rectal bleeding due to hemorrhoids.. Started hemorrhoidal suppositories as needed (4) Vulvar intraepithelial neoplasia (SARAH): Patient has follow-up outpatient for lichen sclerosis with [facility] oncology at [facility] with Ms Garzontiffanydimitrios FISHER who is following patient case and Dr. Juan Pettit MICA SPLITTER. (5) Vitamin D deficiency: Will check vitamin D level. (6) Diabetes mellitus: Hold metformin due to patient being hospitalized and possibly can be a culprit of hypoglycemia or adverse reaction to kidneys when patient would need possibly various radiological studies. Metformin also can cause pancreatitis but less likely since patient has been on it for couple of years. Glycemic control per pharmacy. Recommended Accu-Cheks before meals and at bedtime. Sliding scale insulin. (7) Hyperlipidemia: Lipid panel completed. LDL 116 Patient is not on statins. (8) Hypertension: Blood pressure is stable. Continue aspirin 81 mg p.o. every morning, metoprolol 25 mg p.o. every morning. Hold Xarelto since patient has bleeding hemorrhoids. (9) Superficial thrombophlebitis: Hold Xarelto for now since patient has bleeding hemorrhoids. No indication for blood thinners at this time. Offered to repeat doppler to confimr no clots as previous imaging had no evidence of DVT. Patient refused as she states there is no physical evidence of a clot now. WILL TRANSFER TO MEDICAL. Subjective Patient reports her pain has improved. She reports being hungry and would like to have a diet ordered. She reports she had inflammation of a vein in her right lower extremity but this has improved. She states she would like to stop taking the blood thinner. Review of Systems Review of Systems: All systems reviewed & are unremarkable except as noted in HPI & below Physical Exam Physical Exam: Constitutional: WD/WN, vitals as above well developed and + ill appearing Eyes: PERRL, conjunctivae normal, anicteric sclerae ENMT: external ear and nose normal, oropharynx normal Neck: trachea midline, no thyromegaly Respiratory: normal respiratory effort, lungs clear to auscultation Cardiovascular: RRR, no murmur, no edema Gastrointestinal (Abdomen): Inspection/Auscultation: normal bowel sounds Percussion/Palpation: nontender and abdomen soft Musculoskeletal: no cyanosis or clubbing, extremities motor strength 5/5 Skin: no rashes, warm and dry Neurologic: patellar DTR's 2+ bilat, sensation intact Psychiatric: A+Ox3, euthymic affect Lymphatic: no cervical or axillary lymphadenopathy Results & Data Vital Signs (Past 12 Hours) Vital Signs Temp Pulse Resp BP Pulse Ox 06/24/19 08:08 36.5 C 82 18 109/56 L 94 06/24/19 04:02 36.9 C 78 17 111/63 96 06/24/19 00:10 37.1 C 83 18 118/55 L 93 PG Care Time/CCT Total # of Minutes Spent Total Time Spent with Patient: Total time spent is greater than 50% in coordination of care (as documented) at patient's floor/unit and/or counseling patient: (1) Acute pancreatitis Acute pancreatitis complication: unspecified Pancreatitis type: unspecified pancreatitis type Qualified Code(s): K85.90 - Acute pancreatitis without necrosis or infection, unspecified
[2019-06-24] MEDS ORDERED: LACTATED RINGER'S 1,000 ML IV SCH (11:30)
--- NOTE | 2019-06-24 14:13 | Pharmacy Report ---
Glycemic Control Consultation - Date of Service June 24, 2019 - Scope Scope: Glycemic Pharmacist consulted by Dr Bennett on 06/23/19 for glycemic control and to write orders per [facility] inpatient glycemic control protocol - Objective Weight: 76.6 kg Accuchecks BSG (last 24hrs): 06/23/19 06/24/19 06/24/19 17:41 00:09 05:14 Glucose 103 H POC Glucose 120 H 102 H 06/24/19 06/24/19 05:40 11:49 Glucose POC Glucose 97 99 Laboratory Data (last 24hrs): 06/24/19 05:14 Potassium 3.6 Carbon Dioxide 27 Anion Gap 5.0 Creatinine 0.69 Est Cr Clr Drug Dosing 59.5 - Recent Pertinent Medications Outpatient Anti-diabetic Regimen: * metformin 500 mg qAM * A1c = 6.2 % 04/2018 The patient is currently receiving: * Basal insulin: Lantus -- units every -- hours * Correctional Insulin: Novolog Correction per scale ACHS Goal Range: Low 120 mg/dL - High 150 mg/dL Correction Factor: 40 mg/dL/unit * Prandial insulin: Per carb ratio of 1 unit per 13 grams CHO consumed * Oral Agents: Risk Factors for Insulin Resistance: * Diet: NPO --> clears - Assessment & Plan Assessment & Plan: ASSESSMENT: * Ms Juarez is an 83 y/o F with a PMH of well controlled T2DM who presents with pancreatitis. She was NPO yesterday and transitioned to clears today. * All of patient's blood sugars today have been below 100 mg/dL. Will continue only with Novolog for now with loose CF/CR as well as higher goal range. * Pt is maintained on oral antidiabetic agents as an outpatient * Oral agents are not recommended for inpatient use d/t drug interactions, changing PO intake, and difficulty titrating for acute hyper/hypoglycemia. ADA recommends re-initiating outpatient oral agents 1-2 days prior to discharge if/when appropriate if they were held on admission. * Will hold oral agents for admission and utilize SQ basal bolus insulin regimen which is the recommended regimen for inpatient glycemic control. * Will initiate weight based insulin dosing for insulin moisés patient and titrate based on BSG trends. PLAN FOR INPATIENT GLYCEMIC CONTROL: * Holding outpatient oral diabetes medications * Basal insulin * Lantus -- units SQ BID * Bolus insulin * NovoLog per scale ACHS or Q6hrs while NPO * Goal Range: Low 140 mg/dL - High 180 mg/dL * Correction Factor: 40 mg/dL/unit * Nutritional / Prandial insulin per carb ratio of 1 unit per 15 grams CHO consumed * Please note that the plan above was derived based on current level of insulin resistance and hospital stress. These recommendations are appropriate for inpatient admission only. Plan of care upon discharge will need to be reassessed to avoid potential outpatient hypo/hyperglycemia. Thank you.
[2019-06-24 15:52] LABS: Basophils # (auto) 0.02 K/uL (0-0.2); Basophils % (auto) 0.3 %; Eosinophils # (auto) 0.26 K/uL (0-0.5); Eosinophils % (auto) 3.7 %; Hematocrit (blood only) 34.2 % (37-47); Hemoglobin 10.6 g/dL (12.0-16.0); Immature Granulocytes # (auto) 0.02 K/uL (0.00-0.02); Immature Granulocytes % (auto) 0.3 %; Lymphocytes # (auto) 1.76 K/uL (1.2-3.4); Lymphocytes % (auto) 24.8 %; Mean Corpuscular Hemoglobin 28.6 pg (25-34); Mean Corpuscular Volume 92.2 fL (80-100); Mean Platelet Volume 9.5 fL (7.4-10.4); Monocytes % (auto) 9.9 %; Neutrophils # (auto) 4.33 K/uL (1.4-6.5); Platelet Count 165 K/uL (130-400); RDW Standard Deviation 50.6 fL (36.4-46.3); Red Blood Count 3.71 M/uL (4.2-5.4); White Blood Count 7.09 K/uL (4.8-10.8)
[2019-06-25] MEDS: ACETAMINOPHEN 325 MG TAB PO PRN (00:30)
[2019-06-25 00:36] LABS: Basophils # (auto) 0.01 K/uL (0-0.2); Basophils % (auto) 0.1 %; Eosinophils # (auto) 0.33 K/uL (0-0.5); Eosinophils % (auto) 4.3 %; Hematocrit (blood only) 34.9 % (37-47); Hemoglobin 11.2 g/dL (12.0-16.0); Immature Granulocytes # (auto) 0.01 K/uL (0.00-0.02); Immature Granulocytes % (auto) 0.1 %; Lymphocytes # (auto) 1.88 K/uL (1.2-3.4); Lymphocytes % (auto) 24.8 %; Mean Corpuscular Hemoglobin 29.2 pg (25-34); Mean Corpuscular Hgb Conc 32.1 g/dL (32-36); Mean Corpuscular Volume 91.1 fL (80-100); Mean Platelet Volume 9.3 fL (7.4-10.4); Monocytes # (auto) 0.79 K/uL (0.11-0.59); Monocytes % (auto) 10.4 %; Neutrophils # (auto) 4.57 K/uL (1.4-6.5); Neutrophils % (auto) 60.3 %; Platelet Count 170 K/uL (130-400); RDW Coefficient of Variation 14.9 % (11.5-14.5); RDW Standard Deviation 49.5 fL (36.4-46.3); Red Blood Count 3.83 M/uL (4.2-5.4); White Blood Count 7.59 K/uL (4.8-10.8)
[2019-06-25 07:09] LABS: Estimated Average Glucose 131 mg/dl; Hemoglobin A1C 6.2 % (4.5-5.6)
[2019-06-25 08:03] LABS: BUN Creatinine Ratio 12.3 (10-20); Calcium 8.9 mg/dl (8.5-10.1); Creatinine Clr Calc Pharmacy 65.1 ml/min; Est GFR (African American) 95.5; Est GFR (Non-African American) 82.4; Potassium 3.4 mmol/L (3.5-5.1)
--- NOTE | 2019-06-25 09:28 | Gastroenterology Progress Note ---
Date of Service June 25, 2019 Assessment & Plan (1) Acute pancreatitis: 1. Patient asymptomatic. 2. Continue dietary advancement as tolerated. 3. Stable for discharge from GI standpoint if cleared by primary team. Supervising Physician Co-Signing Physician Notes I personally evaluated the patient and agree with the findings as documented by PHILLIP Light Exam: abd: soft, nt, nd Subjective Patient states her abdominal pain has completely resolved. Tolerating liquid diet. No n/v or fevers/chills. Labs reviewed. No leukocytosis. Lipase is improving at 456 today. Patient verbalizes desire for discharge home. Review of Systems Review of Systems: All systems reviewed & are unremarkable except as noted in HPI & below Physical Exam Constitutional: WD/WN, vitals as above Respiratory: normal respiratory effort, lungs clear to auscultation Cardiovascular: RRR, no murmur, no edema Gastrointestinal (Abdomen): normal bowel sounds, soft, nontender, no hepatosplenomegaly Psychiatric: A+Ox3, euthymic affect Results & Data Vital Signs (Past 12 Hours) Vital Signs Temp Pulse Resp BP Pulse Ox 06/25/19 07:03 36.9 C 86 18 107/65 92 06/24/19 22:37 37.4 C 78 19 122/68 95 Laboratory Results Abnormal lab results 06/24/19 06/24/19 06/25/19 Range/Units 05:14 15:42 00:19 RBC 3.71 L 3.83 L (4.2-5.4) M/uL Hgb 10.6 L 11.2 L (12.0-16.0) g/dL Hct 34.2 L 34.9 L (37-47) % MCHC 31.0 L (32-36) g/dL RDW Std Deviation 50.6 H 49.5 H (36.4-46.3) fL RDW Coeff of Lorenzo 15.0 H 14.9 H (11.5-14.5) % [place] # (Auto) 0.70 H 0.79 H (0.11-0.59) K/uL Potassium (3.5-5.1) mmol/L Chloride (98-107) mmol/L POC Glucose (70-99) Hemoglobin A1c 6.2 H (4.5-5.6) % Lipase (73-393) U/L 06/25/19 06/25/19 Range/Units 06:28 07:26 RBC (4.2-5.4) M/uL Hgb (12.0-16.0) g/dL Hct (37-47) % MCHC (32-36) g/dL RDW Std Deviation (36.4-46.3) fL RDW Coeff of Lorenzo (11.5-14.5) % [place] # (Auto) (0.11-0.59) K/uL Potassium 3.4 L (3.5-5.1) mmol/L Chloride 109 H (98-107) mmol/L POC Glucose 102 H (70-99) Hemoglobin A1c (4.5-5.6) % Lipase 456 H (73-393) U/L PG Care Time/CCT Total # of Minutes Spent Total Time Spent with Patient: Total time spent is greater than 50% in coordination of care (as documented) at patient's floor/unit and/or counseling patient: (1) Acute pancreatitis Acute pancreatitis complication: unspecified Pancreatitis type: unspecified pancreatitis type Qualified Code(s): K85.90 - Acute pancreatitis without necrosis or infection, unspecified
[2019-06-25] MEDS: METOPROLOL SUCC 25MG EXT REL TAB PO SCH (09:57)
[2019-06-25] MEDS: CLOBETASOL PROPIONATE 0.05% OINT 15 GM TUBE EXT SCH (09:58)
[2019-06-25] MEDS: ASPIRIN 81 MG ECTAB PO SCH (09:58)
[2019-06-25] MEDS: CHOLECALCIFEROL 1,000 UNITS TAB PO SCH (09:58)
[2019-06-25] MEDS: POTASSIUM CHLORIDE / WTR 10 MEQ/100 ML PLCT IV SCH (10:00)
[2019-06-25] MEDS: INSULIN ASPART 100 UNITS/ML 3 ML PEN SC SCH ×2 (10:18→14:14)
[2019-06-25] MEDS ORDERED: APIXABAN 5 MG TABLET PO SCH (10:30)
--- NOTE | 2019-06-25 16:22 | Discharge Summary ---
Date of Service June 25, 2019 Admission HPI Per Admitting Provider Patient is a 83 years old female with past medical history of lichen sclerosis SARAH 1 of her vulva, fecal incontinence with bleeding hemorrhoids, diverticulosis of colon, hypertension, hyperlipidemia, lumbar canal stenosis, vitamin D deficiency, who presents to the emergency room with a complaint of abdominal pain for 3 days and not feeling well for 1 week. Patient reports that she was started on Xarelto 1 week ago for superficial thrombophlebitis without DVT. Patient states that for the past week she feels sick in her stomach but condition started to worsen and this morning she decided to come to the emerge ncy room because her pain was unbearable. Patient denies drinking alcohol or ever having similar issues before. Patient denies consuming anything greasy, having a sick contact and or anything that would provoke this issue. Patient appetite is also decreased. Patient did not eat anything since this morning, because she felt that she would not tolerate it. Patient is thinking that this may be caused by Xarelto because start of symptoms was coincidental. Starting the Xarelto. Side effects of Xarelto were reviewed with patient and there was no such as acute pancreatitis found on the list. Patient denies fever, chills, chest pain, shortness of breath, frequency, urgency. On the CT abdomen and pelvis and CT of the chest it was found that patient has extensive pancreatitis. 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 No acute peripancreatic fluid collection. No necrosis at this time. No radiodense gallstones appreciated. Right upper quadrant ultrasound will be better to assess for cholelithiasis. Diverticulosis Thao. No diverticulitis. New small sliding-type hiatal hernia. Labs are reviewed: WBC 7.33, hemoglobin 13, hematocrit 39.8, platelets 205, sodium 138, potassium 3.7, chloride 108, anion gap 2, creatinine 0.81, GFR 66.7, glucose 124, alkaline phosphatase 112, lipase pending. Decision was made to admit patient to PCU on telemetry for acute adenomatosis pancreatitis and further treatment and management. Admission Exam Per Admitting Provider Constitutional: WD/WN, vitals as above well developed and + ill appearing Eyes: PERRL, conjunctivae normal, anicteric sclerae ENMT: external ear and nose normal, oropharynx normal Neck: trachea midline, no thyromegaly Respiratory: normal respiratory effort, lungs clear to auscultation Cardiovascular: RRR, no murmur, no edema Gastrointestinal (Abdomen): Inspection/Auscultation: normal bowel sounds Percussion/Palpation: + abdomen tender, + guarding and abdomen soft Rectal Exam: + heme positive stool Musculoskeletal: no cyanosis or clubbing, extremities motor strength 5/5 Skin: no rashes, warm and dry Neurologic: patellar DTR's 2+ bilat, sensation intact Psychiatric: A+Ox3, euthymic affect Lymphatic: no cervical or axillary lymphadenopathy Principal Diagnosis Xarelto induced pancreatitis Discharge Exam Constitutional well developed and well nourished; not ill appearing Eyes + anicteric sclerae; normal pupil size ENMT external ear and nose normal, oropharynx normal Neck trachea midline Respiratory normal respiratory effort, lungs clear to auscultation Cardiovascular RRR, no murmur, no edema Gastrointestinal (Abdomen) Inspection/Auscultation: abdomen normal to inspection and normal bowel sounds Percussion/Palpation: abdomen soft; abdomen nontender and no guarding Rectal Exam: + heme positive stool Musculoskeletal no cyanosis or clubbing, extremities motor strength 5/5 Skin no rashes, warm and dry Neurologic moves all extremities and awake; not confused Psychiatric A+Ox3, euthymic affect Lymphatic no cervical or axillary lymphadenopathy Discharge Data Allergies Allergy/AdvReac Type Severity Reaction Status Date / Time Sulfa (Sulfonamide AdvReac Unknown "MAKES ME Verified 06/26/19 10:09 Antibiotics) SICK" Consultations 06/23/19 12:42 ED Decision to Admit Stat 06/23/19 16:09 Consult Gastroenterology Routine Ordered Studies 06/23/19 11:38 CT abd pelvis IV con only Stat CT angio chest PE protocol Stat 06/23/19 14:54 US abdomen limited Stat Hospital Course (1) Acute pancreatitis: Diana Juarez is an 84 year old female admitted to [facility] from June 23 to 2018 due to abdominal pain after starting Xarelto for superficial thrombophlebitis. She was diagnosed with acute pancreatitis based upon CT imaging, epigastric pain on exam and elevated lipase. At discharge she is tolerating tolerating a regular (low fat, low fiber) diet and medically stable for discharge off IV fluids. Her Xarelto has been switched to Eliquis as this was thought to be the most likely cause of her pancreatitis. (2) Acute dehydration: (3) Bleeding hemorrhoids: (4) Vulvar intraepithelial neoplasia (SARAH): (5) Vitamin D deficiency: (6) Diabetes mellitus: (7) Hyperlipidemia: (8) Hypertension: (9) Superficial thrombophlebitis: Total Time Total Time Spent Total Time Spent (In Minutes): 50 Total Time Includes: Examination of the Patient, Discharge Planning and Medication Reconciliation Discharge Plan Discharge Items Patient Disposition: Home - Self-Care Reason For Visit: ACUTE PANCREATITIS Discharge Diagnosis: Xarelto induced pancreatitis Condition on Discharge: Good Activity: Resume your previous activity Non-emergency contact: Primary Care Provider Call non-emergency contact if: you have any medication questions, your symptoms worsen and your temperature is above 101 Follow-up/Referrals: Cornell Cee MD [Primary Care Provider] - 06/29/19 11:00 am (Please, follow up at Dr. Cornell Cee's office with his associate, Christiane Ott PA-C, on TuesdayJune 29 at 11:00 am. *If you need to change this appointment, call their office at [phone].) Diet: Regular, Low Fiber and Low Fat Addtl Attending Provider Instructions: You were admitted to [facility] from June 23 to 2018 due to abdominal pain after starting Xarelto for superficial thrombophlebitis. You were diagnosed with acute pancreatitis based upon CT imaging, epigastric pain on exam and elevated lipase. You are now tolerating a regular (low fat, low fiber) diet and medically stable for discharge off IV fluids. Your Xarelto has been switched to Eliquis as prescribed below. Please follow up with your PCP for ongoing prescriptions of this and further workup if required. Pending Studies at Discharge: No Stand-Alone Forms: My [facility], Smoking Cessation Medications and DC Order Prescriptions: New Eliquis 5 mg (74 tabs) tablets,dose pack See Rx Instructions .ROUTE .COMPLEX Qty: 74 RF: 0 Continued cholecalciferol (vitamin D3) 1,000 unit (25 mcg) tablet 1,000 units PO QAM RF: 0 clobetasol 0.05 % cream 1 appln TOP BID RF: 0 imiquimod [Aldara] 5 % cream in packet 1 applic TOP [id number] RF: 0 aspirin [Adult Aspirin Regimen] 81 mg tablet,delayed release (DR/EC) 81 mg PO QAM RF: 0 metformin 500 mg tablet 500 mg PO QAM RF: 0 propylene glycol 0.6 % drops 1 drops OP PRN RF: 0 metoprolol succinate 25 mg tablet extended release 24 hr 25 mg PO QAM RF: 0 pyridoxine (vitamin B6) 200 mg Tablet Extended Release 200 mg PO QAM RF: 0 Discontinued Xarelto 15 mg tablet 15 mg PO BID Qty: 42 RF: 0 Xarelto 20 mg tablet 20 mg PO DAILY Qty: 30 RF: 0 naproxen sodium 220 mg capsule 220 mg PO PRN RF: 0 Discharge Orders: Discharge Order (Routine); Ordered 06/25/19 Ordered By: Juan Manning/Other Patient Handouts: Pancreatitis Acute Dc Admission Data Admit Date/Time: 06/23/19 14:45 Attending Provider: Juan Jones Admit Provider: Zaki Bennett Primary Care Provider: Cornell Cee Other Providers: Zaki Bennett ; Tee Palacios Other Interventions: Discharge Summary Assessment (RN) Last Done: 06/25/19 16:53 DC Date/Time DO NOT enter until pt leaves facility: 06/25/19 17:29
[2019-07-02] MEDS ORDERED: APIXABAN 5 MG TABLET PO SCH (09:00)
== END 2019-06-25 17:29 | disposition home or self-care (01) | DRG 440 ==
LOC: ED 11:07 → SUATTDRO 14:45 → 2E 14:45 → 2N 06-24 14:32